=== PATIENT | male | born 1970 | race Hispanic/Latino ===

== ENCOUNTER 2023-09-01 00:57 | Emergency (ER) | payer BC, OTHER ==
[~2023-09-01] VITALS: Ht 180.3 cm; Wt 122.5 kg
[2023-09-01] MEDS ORDERED: DEXAMETHASONE SOD PHOSPHATE 4 MG/ML 1ML VIAL IVP ONE (01:30)
[2023-09-01] MEDS ORDERED: 0.9%NACL 1000ML 1,000 ML IV SCH (01:30)
[2023-09-01] MEDS ORDERED: FAMOTIDINE 20MG VIAL IV ONE (01:30)
[2023-09-01] MEDS ORDERED: HYDROXYZINE 25 MG TABLET PO ONE (02:30)
[2023-09-01 02:41] VITALS: BP 121/81; PULSE 100; RESP 18; O2SAT 98
[2023-09-01] MEDS ORDERED: CETI10CA5 PO (02:47)
[2023-09-01] MEDS ORDERED: EPIN0.3P3 IJ (02:47)
== END 2023-09-01 03:26 | disposition home or self-care (01) ==
LOC: EDH 00:57
DX: T78.40XA Allergy, unspecified, initial encounter (principal); L50.9 Urticaria, unspecified; Z88.0 Allergy status to penicillin; X58.XXXA Exposure to other specified factors, initial encounter
CPT/HCPCS: 99284; 96374; 96361; 96375; J1100; J3490; J7030